=== PATIENT | female | born 1985 | race African-American/Black ===

== ENCOUNTER 2021-03-25 10:20 | Outpatient (CLI) | payer MEDICAID | END 2021-03-25 10:21 | disposition home or self-care (01) | LOC: BICMAMMO 10:20 | PROVIDERS: ATTEND Family Medicine | DX: N63.14 Unspecified lump in the right breast, lower inner quadrant (principal); R92.8 Other abnormal and inconclusive findings on diagnostic imaging of breast; N64.89 Other specified disorders of breast; R92.1 Mammographic calcification found on diagnostic imaging of breast; Z98.890 Other specified postprocedural states | CPT/HCPCS: 19083; 77066; 88305; 88341; 88342; G0279 ==

== ENCOUNTER 2021-09-23 10:03 | Outpatient (CLI) | payer BC | END 2021-09-23 10:04 | disposition home or self-care (01) | LOC: BICULT 10:03 | PROVIDERS: ATTEND Family Medicine | DX: N63.0 Unspecified lump in unspecified breast (principal) ==

== ENCOUNTER 2022-04-20 08:23 | Outpatient (CLI) | payer OTHER | END 2022-04-20 08:24 | disposition home or self-care (01) | LOC: ULT 08:23 | PROVIDERS: ATTEND Internal Medicine Medical Oncology | DX: R16.1 Splenomegaly, not elsewhere classified (principal); K76.0 Fatty (change of) liver, not elsewhere classified; Z79.899 Other long term (current) drug therapy | CPT/HCPCS: 76700 ==